=== PATIENT | male | born 1975 | race Asian ===

== ENCOUNTER 2019-04-29 08:10 | Emergency (ER) | payer OTHER ==
[~2019-04-29] VITALS: Ht 167.6 cm; Wt 88.5 kg
[2019-04-29 08:18] VITALS: BP 177/102
--- NOTE | 2019-04-29 09:26 | NUR ---
Jazzy truong in [facility] - 04/29/19 at 0927 by [facility] DC
--- NOTE | 2019-04-29 09:27 | NUR ---
Patient discharged to home in stable condition. Written and verbal after care instructions given. Patient verbalizes understanding of instruction.
== END 2019-04-29 09:26 | disposition home or self-care (01) ==
LOC: ER 08:13
DX: L02.31 Cutaneous abscess of buttock (principal); I10 Essential (primary) hypertension